=== PATIENT | male | born 1970 | race Caucasian/White ===

== ENCOUNTER 2017-02-07 10:03 | Emergency (ER) | payer SELFPAY ==
[2017-02-07] MEDS ORDERED: MOTRIN PO ONE (13:36)
[2017-02-07 14:01] VITALS: BP 113/81
--- NOTE | 2017-02-07 17:39 | Emergency Department Report ---
ED General Adult HPI - General Chief complaint: Rectal Pain Stated complaint: HEMORRHOIDS Source: patient Mode of arrival: Ambulatory Limitations: No Limitations - History of Present Illness Initial comments: 46 y/o M with no significant PMHx present to the ER complaining of hemorrhoids. Pt states that his symptoms started on Saturday night. He states that the pain and symptoms have progressed. Pt admits to straining and constipation. He denies a hx of hemorrhoids and he has not tried anything for the symptoms at this time. He reports to 10 in severity pain at this time. He denies any nausea, vomiting, fever, chills, CP, SOB, or abdominal pain. Pt denies any sick contacts or travel hx. pt admits to streaks of blood. NKDA. -: Sudden, days(s) (3-4) Location: buttocks Radiation: non-radiation Severity scale (0 -10): 10 Quality: constant Consistency: constant Improves with: none Worsens with: none Associated Symptoms: denies other symptoms Treatments Prior to Arrival: none - Related Data Previous Rx's Medication Instructions Recorded Last Taken Type Hydrocortisone [Anusol-Hc] 30 gm RC TID #1 tube 02/07/17 Unknown Rx Lidocaine [Anecream5] 30 gm TP BID #1 tube 02/07/17 Unknown Rx Allergies Allergy/AdvReac Type Severity Reaction Status Date / Time No Known Allergies Allergy Verified 02/07/17 10:16 ED Review of Systems ROS: Stated complaint: HEMORRHOIDS Other details as noted in HPI Constitutional: denies: chills, fever Eyes: denies: eye pain, eye discharge, vision change ENT: denies: ear pain, throat pain Respiratory: denies: cough, shortness of breath, wheezing Cardiovascular: denies: chest pain, palpitations Gastrointestinal: constipation, other (hemorrhoids and pain) Genitourinary: denies: urgency, dysuria Musculoskeletal: denies: back pain, joint swelling, arthralgia Skin: denies: rash, lesions Neurological: denies: headache, weakness, paresthesias Psychiatric: denies: anxiety, depression ED Past Medical Hx - Past Medical History Previous Medical History?: No - Surgical History Past Surgical History?: No - Social History Smoking Status: Current Every Day Smoker Substance Use Type: Alcohol - Medications Home Medications: Home Medications Medication Instructions Recorded Confirmed Last Taken Type Hydrocortisone [Anusol-Hc] 30 gm RC TID #1 tube 02/07/17 Unknown Rx Lidocaine [Anecream5] 30 gm TP BID #1 tube 02/07/17 Unknown Rx ED Physical Exam - General Limitations: No Limitations General appearance: alert, in no apparent distress - Head Head exam: Present: atraumatic, normocephalic - Eye Eye exam: Present: normal appearance - ENT ENT exam: Present: mucous membranes moist - Respiratory Respiratory exam: Present: normal lung sounds bilaterally. Absent: respiratory distress - Cardiovascular Cardiovascular Exam: Present: regular rate, normal rhythm. 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 Pool also examined patient), tenderness - exam: Present: normal inspection - Neurological Exam Neurological exam: Present: alert, oriented X3 - Psychiatric Psychiatric exam: Present: normal affect, normal mood - Skin Skin exam: Present: warm, dry, intact, other (external thrombosed hemorrhoids). Absent: rash ED Course Vital Signs 02/07/17 02/07/17 10:16 14:00 Temperature 98.3 F 98.1 F Pulse Rate 88 80 Respiratory 20 12 Rate Blood Pressure 127/88 Blood Pressure 113/81 [Right] O2 Sat by Pulse 99 100 Oximetry ED Medical Decision Making - Medical Decision Making Pt was examined by myself and Dr. Pool. We have come to the conclusion that the patient has external thrombosed hemorrhoids that were hard and nonreducable on exam. Pt was given 600 mg of Ibuprofen here in the ED for pain. Pt was instructed to do sitz baths, apply the topical creams anusol and lidocaine topical to help with the pain. He was instructed to take tylenol/ ibuprofen as needed for the pain- orally. Pt was encouraged to see the general surgeon this week for possible surgical removal. Pt was in stable condition upon discharge, alert and oriented, and in no resp distress. Speaking in full sentences. Critical care attestation.: If time is entered above; I have spent that time in minutes in the direct care of this critically ill patient, excluding procedure time. ED Disposition Clinical Impression: External thrombosed hemorrhoids Disposition: DC-01 TO HOME OR SELFCARE Is pt being admited?: No Does the pt Need Aspirin: No Condition: Stable Instructions: Hemorrhoids (ED) Additional Instructions: Please do sitz baths and apply these topical medications to the site. You may take Ibuprofen/Tylenol oral for the pain. To aid in comfort please use a button pillow. You will need to see general surgery within this week for evaluation/ surgery. Follow-up within PCP within 3-5 days. Please return to the ER immediately with any continued or worsening symptoms. Prescriptions: Hydrocortisone [Anusol-Hc] 30 gm RC TID #1 tube Lidocaine [Anecream5] 30 gm TP BID #1 tube Referrals: [facility] [Outside] - 3-5 Days [facility] [Outside] - 3-5 Days HELENE VO MD [Staff Physician] - 3-5 Days PRIMARY CAREMD [Primary Care Provider] - 3-5 Days KRIS HERNANDEZ MD [Staff Physician] - 3-5 Days Forms: Work/School Release Form(ED)
== END 2017-02-07 14:00 | disposition home or self-care (01) ==
LOC: ED 10:03
DX: K64.5 Perianal venous thrombosis (principal); F17.200 Nicotine dependence, unspecified, uncomplicated
CPT/HCPCS: 99283